=== PATIENT | female | born 1995 ===

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

== ENCOUNTER 2021-08-26 07:46 | Inpatient (IN) ==
[2021-08-26] MEDS ORDERED: OXYTOCIN 30 UNITS/500 ML BAG IV PRN ×3 (08:05→18:27)
[2021-08-26 08:27] LABS: Hematocrit (blood only) 37.3 % (37-47); Hemoglobin 12.4 g/dL (12.0-16.0); Mean Corpuscular Hemoglobin 30.5 pg (25-34); Mean Corpuscular Hgb Conc 33.2 g/dL (32-36); Mean Corpuscular Volume 91.6 fL (80-100); Mean Platelet Volume 9.9 fL (7.4-10.4); Platelet Count 275 K/uL (130-400); RDW Standard Deviation 53.5 fL (36.4-46.3); Red Blood Count 4.07 M/uL (4.2-5.4); White Blood Count 12.62 K/uL (4.8-10.8)
--- NOTE | 2021-08-26 08:59 | History & Physical Report ---
Date of Service August 26, 2021 Assessment & Plan (1) Insulin controlled gestational diabetes mellitus (GDM) during : (2) Encounter for induction of labor: Plan: admit, iv, labs. start pitocin. arom when able. fhts categ 1. check bsg now, plan q2hr in labor--depending on results. Admission and Anticipated Discharge Date Admission Date: August 26, 2021 History of Present Illness Chief Complaint: planned induction Primary Care Provider: NO PCP 26yo at 39+wks laura presents to L&D for planned induction for GDM on insulin. Doing well. No bp issues yesterday at time of wick placement. Labs yesterday normal. Denies tyson, visual change, ruq pain. No ctx, no rom, no vb. +FM. Did not have enough nph to take her 30u last night and so only took 12u. Did not check her fasting this am. Ate her breakfast and took 1/2 her am regular, which was 5 units, due to how i instructed her but did not expect her to miss full dose of qhs NPH. Wick has not fallen out. PNC c/b 1. GDM on insulin Allergies Allergy/AdvReac Type Severity Reaction Status Date / Time No Known Allergies Allergy Verified 08/25/21 18:39 Home Medications Medication Instructions Recorded Confirmed Type prenat.vits,abbey,[id number] 1 tab PO DAILY 12/25/20 08/26/21 History acetone (urine) test (Ketone Urine #50 ea 05/08/21 08/25/21 Rx Test) blood sugar diagnostic (OneTouch #150 ea 05/08/21 08/25/21 Rx Verio test strips) blood-glucose meter (OneTouch #1 ea 05/08/21 08/25/21 Rx Verio Flex meter) lancets 33 gauge (OneTouch Delica #150 ea 05/08/21 08/25/21 Rx Plus Lancet) Novolin N Flexpen 100 unit/mL (3 30 unit SUBCUT DAILY #15 ml NS 06/03/21 08/26/21 Rx mL) subcutaneous insulin pen (insulin NPH isoph U-100 human) ferrous sulfate 1 tab PO Q OTHER DAY 07/15/21 08/26/21 History insulin lispro 100 unit/mL 10 unit SUBCUT TID #15 ml 07/25/21 08/26/21 Rx subcutaneous pen (Humalog KwikPen (U-100) Insulin) pen needle, diabetic 32 gauge x #100 ea 07/25/21 08/25/21 Rx 5/32" (BD Ultra-Fine Mary Pen Needle) insulin NPH isoph U-100 human 100 30 unit SUBCUT QPM 08/25/21 08/26/21 History unit/mL (3 mL) subcutaneous pen (Humulin N NPH U-100 Insulin KwikPen) Patient History Medical History (Updated 08/26/21 @ 09:00 by Nguyen Wynne MD, FACOG) Acne Large for dates affecting management of mother Polycystic ovarian syndrome Family History Mother Cerebral aneurysm Grandmother (Maternal) Skin cancer Social History (Updated 08/25/21 @ 18:39 by Dionna Bunch, RN) Smoking Status: Never smoker Hx Alcohol Use: No Hx Substance Use: No Preferred Language: Namibian Communication Ability: Effective Beliefs That Will Affect Care: None marital status: Single marital status details: Sergio (24) [phone] Current Living Situation: Spouse Current Living Situation Comment: lives with FOB, 1 dog, 2 cats, FOB to change litter. current occupational status: employed current occupation: PPT [employer] Other Information That Helps Us Care for You: No Feels Safe at Home: Yes Safety Concerns: Feels Safe At This Time Review of Systems as per Subjective / HPI Physical Exam Constitutional: WD/WN, vitals as above Respiratory: normal respiratory effort, lungs clear to auscultation Cardiovascular: Rate/Rhythm: regular rate and regular rhythm Gastrointestinal (Abdomen): soft gravid nt Musculoskeletal: no edema nontender calves Neurologic: grossly normal Psychiatric: A+Ox3, euthymic affect Genitourinary: OB Exam Abdomen: + estimated weight (7-8#) Manual OB Exam: + cervical dilation 4 cm, + cervical effacement (75%) and + station -2 OB Exam Monitor Tracing: + external FHT monitor used, + external uterine monitor used (no ctx), + category I and + normal FHT variability Results & Data ([facility]) Vital Signs (Past 12 Hours) Vital Signs Temp Pulse Resp BP 08/26/21 08:36 98.8 F 20 08/26/21 07:57 87 136/86 Coding Level of Care Code None Diagnoses Insulin controlled gestational diabetes mellitus (GDM) during O24.414 Encounter for induction of labor Z34.90
[2021-08-26] MEDS: LACTATED RINGER'S 1,000 ML IV PRN ×3 (09:11→17:25)
[2021-08-26] MEDS ORDERED: ACETAMINOPHEN 325 MG TAB PO ONE (10:21)
[2021-08-26] MEDS ORDERED: SODIUM CHLORIDE 0.9% INJ 10 ML VIAL ONE (12:21)
[2021-08-26] MEDS ORDERED: BUPIVACAINE 0.25% 30 ML VIAL ONE (12:21)
[2021-08-26] MEDS ORDERED: fentaNYL citrate 100 MCG/2 ML VIAL ONE (12:21)
[2021-08-26] MEDS ORDERED: ePHEDrine sulfate 50 MG/ML AMP ONE (12:21)
[2021-08-26] MEDS ORDERED: fentaNYL 2MCG/ML ROPIVACAINE 1.25MG/ML 100 ML BAG EPI ONE (12:22)
--- NOTE | 2021-08-26 13:01 | Anesthesiology Consultation ---
Date of Service August 26, 2021 Assessment & Plan (1) Encounter for pre-operative examination: Chart Review Chart Review: Acceptable Risk for Surgery and Patient NOT seen in Pre Admission Testing Consults Requested none ASA ASA3 Proposed Anesthesia Anesthesia Type: Labor Epidural Risk / Benefits Reviewed With: PT / POA / Parent / Guardian, Accepts Plan and Informed Consent Obtained History Height/Weight Height: 5 ft 5 in Weight: 100.244 kg Allergies Allergy/AdvReac Type Severity Reaction Status Date / Time No Known Allergies Allergy Verified 08/25/21 18:39 Medications Home Medications Medication Instructions Recorded Confirmed Last Taken prenat.vits,abbey,jtq-owld-vcyvc 1 tab PO DAILY 12/25/20 08/26/21 08/26/21 acetone (urine) test (Ketone Urine #50 ea 05/08/21 08/25/21 Unknown Test) blood sugar diagnostic (OneTouch #150 ea 05/08/21 08/25/21 Unknown Verio test strips) blood-glucose meter (OneTouch #1 ea 05/08/21 08/25/21 Unknown Verio Flex meter) lancets 33 gauge (OneTouch Delica #150 ea 05/08/21 08/25/21 Unknown Plus Lancet) Novolin N Flexpen 100 unit/mL (3 30 unit SUBCUT DAILY #15 ml NS 06/03/21 08/26/21 1 Day Ago mL) subcutaneous insulin pen ~08/25/21 (insulin NPH isoph U-100 human) ferrous sulfate 1 tab PO Q OTHER DAY 07/15/21 08/26/21 08/25/21 08:00 insulin lispro 100 unit/mL 10 unit SUBCUT TID #15 ml 07/25/21 08/26/21 08/26/21 subcutaneous pen (Humalog KwikPen (U-100) Insulin) pen needle, diabetic 32 gauge x #100 ea 07/25/21 08/25/21 Unknown " (BD Ultra-Fine Mary Pen Needle) insulin NPH isoph U-100 human 100 30 unit SUBCUT QPM 08/25/21 08/26/21 1 Day Ago unit/mL (3 mL) subcutaneous pen ~08/25/21 (Humulin N NPH U-100 Insulin KwikPen) Active Medications Generic Name Dose Route Start Last Admin Trade Name Freq PRN Reason Stop Dose Admin Lactated Ringer's 1,000 mls @ 125 mls/hr 08/26/21 08:05 08/26/21 12:49 Lr IV 08/28/21 08:04 999 mls/hr .Q8H PRN Administration L&D Protocol Protocol Oxytocin 30 units in 500 mls @ 9 mls/hr 08/26/21 08:05 08/26/21 11:45 Pitocin IV 08/28/21 08:04 0.54 units/hr .Q24H PRN 9 mls/hr Labor Induction/Augmentation Titration Protocol 0.54 UNITS/HR Past Medical History Medical History Acne Large for dates affecting management of mother Polycystic ovarian syndrome Past Family History Family History Mother Cerebral aneurysm Grandmother (Maternal) Skin cancer Social History Smoking Status: Never smoker Hx Alcohol Use: No Hx Substance Use: No substance use type: does not use Physical Exam Vital Signs Last Vital Signs Temp 37.1 C 08/26/21 08:36 Pulse 83 08/26/21 12:52 Resp 18 08/26/21 12:17 BP 136/78 08/26/21 12:18 Pulse Ox 97 08/26/21 12:52 Testing Laboratory Results 08/26/21 08:16 08/26/21 09:08 POC Glucose 107 H
[2021-08-26] MEDS ORDERED: ePHEDrine sulfate 50 MG/ML AMP IV PRN (13:47)
[2021-08-26] MEDS ORDERED: ONDANSETRON INJ 2 MG/ML 2 ML VIAL IV PRN (13:47)
[2021-08-26] MEDS ORDERED: NALBUPHINE HCL INJ 10 MG/ML AMP IV PRN (13:47)
[2021-08-26] MEDS ORDERED: fentaNYL 2MCG/ML ROPIVACAINE 1.25MG/ML 100 ML BAG EPI PRN (13:47)
[2021-08-26] MEDS ORDERED: NALOXONE HCL 1 MG in SODIUM CHLORIDE 0.9% 1000ML 1,000 ML IV PRN (13:47)
[2021-08-26] MEDS ORDERED: NALOXONE HCL 0.4 MG/1 ML VIAL/CARP IV PRN (13:47)
[2021-08-26] MEDS ORDERED: diphenhydrAMINE 50 MG/ML VIAL IV PRN (13:47)
--- NOTE | 2021-08-26 14:00 | Labor Progress Brief Note ---
Date of Service August 26, 2021 Subjective comfortable now after epidural Assessment & Plan (1) Encounter for induction of labor: (2) Insulin controlled gestational diabetes mellitus (GDM) during : Plan: will see how arom helps labor. fhts categ 1. c/w pit Admission and Anticipated Discharge Date Admission Date: August 26, 2021 Physical Exam Constitutional: WD/WN, vitals as above Genitourinary: Manual OB Exam: + cervical dilation 4 cm, + cervical effacement 80%, + station -1 and + amniotic fluid (AROM) meconium OB Exam Monitor Tracing: + external FHT monitor used, + external uterine monitor used (q2), + category I and + normal FHT variability Results & Data ([facility]) Vital Signs (Past 12 Hours) Vital Signs Temp Pulse Resp BP Pulse Ox 08/26/21 13:56 90 144/80 H 08/26/21 13:52 85 97 08/26/21 13:51 88 140/74 08/26/21 13:47 98 H 96 08/26/21 13:45 96 H 151/76 H 08/26/21 13:43 89 128/67 08/26/21 13:42 92 H 96 08/26/21 13:41 91 H 139/76 08/26/21 13:39 86 145/80 H 08/26/21 13:37 88 143/68 H 97 08/26/21 13:35 100 H 151/70 H 08/26/21 13:33 85 146/70 H 08/26/21 13:32 85 98 08/26/21 13:31 105 H 147/77 H 08/26/21 13:29 89 148/80 H 08/26/21 13:27 94 H 147/85 H 96 08/26/21 13:25 82 133/86 08/26/21 13:22 95 H 97 08/26/21 13:17 105 H 98 08/26/21 13:12 81 99 08/26/21 13:11 99 H 94 08/26/21 13:07 86 99 08/26/21 13:02 84 99 08/26/21 12:57 83 99 08/26/21 12:52 83 97 08/26/21 12:47 75 99 08/26/21 12:42 93 H 98 08/26/21 12:37 81 95 08/26/21 12:32 84 96 08/26/21 12:27 87 97 08/26/21 12:22 85 96 08/26/21 12:18 82 136/78 08/26/21 12:17 180 H 18 98 08/26/21 11:46 80 120/67 08/26/21 10:30 81 18 117/69 08/26/21 08:36 98.8 F 20 08/26/21 07:57 87 136/86 Coding Level of Care Code None Diagnoses Encounter for induction of labor Z34.90 Insulin controlled gestational diabetes mellitus (GDM) during O24.414
--- NOTE | 2021-08-26 18:18 | Delivery Summary ---
Vaginal Delivery Summary Date of Service August 26, 2021 Vaginal Delivery Summary and 3rd Degree LAC (partial) The patient dilated to complete and pushed to deliver a viable female Apgars 7 and 9 via over partial 3rd degree perineal laceration. Mouth and nose bulb suctioned at perineum. Loose nuchal x 1 reduced with ease. Shoulders and body delivered with ease. was vigorous and crying at . Cord clamped at 20 seconds of life and to maternal abdomen where the cord was then doubly clamped and cut. Placenta delivered spontaneously and intact, three-vessel cord. Hemostasis achieved with dilute pitocin and uterine massage and drainage of the bladder for approximately 100 cc under sterile conditions. Laceration repaired in layers with 2-0 and 3-0 vicryl, with care to reinforce the capsule and repair of laceration otherwise routinely. Cervix and sulci intact. EBL 400 cc. Mother and baby stable recovery. [facility] [place] [facility] [place]aginal Delivery Charge Vaginal Delivery Codes: 05661 global code for the antepartum, delivery, and post- Delivery Type Details: and 3rd Degree LAC (partial)
--- NOTE | 2021-08-26 18:20 | Anesthesia Procedure Note ---
Date of Service August 26, 2021 Anesthesia Post Epidural Note Vital Signs Vital Signs: Temp Pulse Resp BP Pulse Ox 37.1 C 106 H 20 121/65 99 08/26/21 16:00 08/26/21 18:07 08/26/21 16:00 08/26/21 18:07 08/26/21 18:07 Notes Mental Status: alert / awake / arousable and participated in evaluation Nausea / Vomiting: adequately controlled Pain: adequately controlled Airway Patency, RR, SpO2: stable & adequate BP & HR: stable & adequate Hydration State: stable & adequate Neuraxial Anesthesia: was administered and sensory block is resolving Anesthetic Complications: no major complications apparent and Pt Satisfied with anesthetic care Epidural: Removed without complications and With tip intact Notes: Epidural site clean, dry and intact. No signs of edema, erythema or bruising at insertion site. Pt instructed to request anesthesia if she has residual lower extremity numbness or if she develops lower extremity pain or weakness, back pain or headache.
[2021-08-26 18:23] LABS: Base Excess Cord Arterial Bld -5.8 mEq/L (-9-1.8); Base Excess Cord Venous Blood -4.4 mEq/L (-7.7-1.9); CO2 Cord Arterial Blood 60 mmHg (39.1-73.5); Cord Venous Blood HCO3 21 mmol/L (18.4-26.8); Cord Venous Blood PCO2 38 mmHg (30.4-57.2); Cord Venous Blood PO2 24 mmHg (14.1-43.3); Cord Venous Blood pH 7.35 (7.20-7.44); HCO3 Cord Arterial Blood 23 mmol/L (19.7-28.5); PO2 Cord Arterial Blood 19 mmHg (4.1-31.7); pH Cord Arterial Blood 7.21 (7.1-7.38)
[2021-08-26 18:24] LABS: O2 Saturation Cord Venous Bld < 68.0 % (<68); Oxygen Sat Cord Arterial Blood < 60.0 % (<60)
[2021-08-26] MEDS ORDERED: oxyCODONE/ACETAMINOPHEN 5mg/325mg TAB PO PRN (18:27)
[2021-08-26] MEDS ORDERED: SUPERCREAM 0.870% 15 GM JAR EXT PRN (18:27)
[2021-08-26] MEDS ORDERED: HYDROCORTISONE ACETATE 25 MG SUPP PR PRN (18:27)
[2021-08-26] MEDS ORDERED: BENZOCAINE 20% AER SPR 82.5 GM CAN EXT PRN (18:27)
[2021-08-26] MEDS ORDERED: ACETAMINOPHEN 325 MG TAB PO PRN (18:27)
[2021-08-26] MEDS ORDERED: OXYTOCIN 20 UNITS in LACTATED RINGER'S 1,000 ML IV SCH (18:27)
[2021-08-26] MEDS: DOCUSATE SODIUM 100 MG CAP PO SCH (21:56)
[2021-08-27] MEDS: IBUPROFEN 600 MG TAB PO PRN ×4 (02:30→19:39)
[2021-08-27 06:18] LABS: Hematocrit (blood only) 32.9 % (37-47); Hemoglobin 10.7 g/dL (12.0-16.0)
--- NOTE | 2021-08-27 06:42 | Obstetrical Progress Note ---
Date of Service August 27, 2021 Assessment & Plan (1) examination following vaginal delivery: stable, routine care. rh pos, ri, . Day #:: 1 Subjective Ambulation: ambulating normally Voiding: no voiding problems Diet Tolerance:: regular diet Lochia:: Small Feeding Type:: breast feeding no pain issues Constitutional: + as per Subjective / HPI Physical Exam Constitutional WD/WN, vitals as above Respiratory normal respiratory effort, lungs clear to auscultation Cardiovascular Rate/Rhythm: regular rate and regular rhythm Gastrointestinal (Abdomen) Inspection/Auscultation: abdomen normal to inspection Percussion/Palpation: abdomen soft Fundus firm 2cm down Musculoskeletal nt calves tr edema Neurologic grossly normal Psychiatric A+Ox3, euthymic affect Results & Data ([facility]) Vital Signs (Past 12 Hours) Vital Signs Temp Pulse Pulse Resp BP BP Pulse Ox 08/27/21 03:20 98.8 F 98 H 18 119/72 08/26/21 23:00 98.8 F 96 H 18 129/71 98 08/26/21 20:08 117 H 143/67 H 08/26/21 19:52 110 H 18 118/59 L 08/26/21 19:37 112 H 133/61 08/26/21 19:22 99.1 F 91 H 18 122/59 L 08/26/21 19:07 100 H 123/64 08/26/21 18:52 107 H 18 142/60 H
--- NOTE | 2021-08-27 06:48 | Obstetrical Progress Note ---
Date of Service August 27, 2021 Assessment & Plan (1) Encounter for care and examination after delivery: PPD1: stable; routine care -ambulating, voiding without difficulty -tolerating regular diet -minimal pain/no need for analgesia at this time -anticipate d/c today or tomorrow -outpt OB f/u at 6 wks Subjective Nereida is a 26 y/o female who is now PPD 1 following spontaneous vaginal delivery at 39+weeks. GDM on insulin (30u NPH). Reports feeling well overall this morning. Reports minimal pain. Voiding +. Tolerating meals well and able to ambulate without difficulty. + passing gas but no bowel movements. Some lochia with improvement this morning. . Review of Systems Denies fever, chills, sweats Denies shortness of breath, difficulty breathing, chest pain, palpitations, chest pressure. Denies breast pain. Denies dysuria. Denies headache or changes in vision Physical Exam General: Alert, oriented. No acute distress. Cardiac: Regular rate and rhythm, no murmurs/rubs/gallops. Respiratory: Clear to auscultation bilaterally a/p, no wheezes/rales/rhonchi. No increased work of breathing. Symmetrical chest rise. No respiratory distress. Abdomen: Soft, nontender, nondistended. Bowel sounds present. Uterus: Uterine fundus firm, palpable 3 cm below umbilicus. Lower Extremities: No lower extremity edema or swelling. No deep calf pain. Elayne's negative bilaterally. Results & Data ([facility]) Vital Signs (Past 12 Hours) Vital Signs Temp Pulse Pulse Resp BP BP Pulse Ox 08/27/21 03:20 37.1 C 98 H 18 119/72 08/26/21 23:00 37.1 C 96 H 18 129/71 98 08/26/21 20:08 117 H 143/67 H 08/26/21 19:52 110 H 18 118/59 L 08/26/21 19:37 112 H 133/61 08/26/21 19:22 37.3 C 91 H 18 122/59 L 08/26/21 19:07 100 H 123/64 08/26/21 18:52 107 H 18 142/60 H Resident Activity Tracking Resident Involvement: Resident Care Provided Care Provided: OB Delivery
[2021-08-27] MEDS: PRENATAL VITAMIN 1 TAB PO SCH (07:33)
[2021-08-27] MEDS: DOCUSATE SODIUM 100 MG CAP PO SCH ×2 (07:33→19:39)
[2021-08-27] MEDS ORDERED: DIPHTHERIA/TETANUS/PERTUSSIS 0.5 ML SYR/VIAL IM ONE (09:00)
[2021-08-28] MEDS: IBUPROFEN 600 MG TAB PO PRN ×2 (04:28→08:36)
--- NOTE | 2021-08-28 06:59 | Obstetrical Progress Note ---
Date of Service <Silva Morrow MD - Last Filed: 08/28/21 07:29> August 28, 2021 Assessment & Plan <Silva Morrow MD - Last Filed: 08/28/21 07:29> (1) Encounter for care and examination after delivery: PPD2: stable; routine care -ambulating, voiding without difficulty -tolerating regular diet -pain managed with Motrin -d/c today -outpt OB f/u at 6 wks <Padmaja Serrano MD, FACOG - Last Filed: 08/28/21 07:31> (1) Encounter for care and examination after delivery: Subjective <Silva Morrow MD - Last Filed: 08/28/21 07:29> Nereida is a 26 y/o female who is now PPD 2 following spontaneous vaginal delivery at 39 weeks. Reports feeling well overall this morning. + abdominal cramping & 3-5/10 pain well managed on analgesics. Voiding +. Tolerating meals well and able to ambulate w/o difficulty. + passing gas and + bowel movements. . Review of Systems Denies fever, chills, sweats Denies shortness of breath, difficulty breathing, chest pain, palpitations, chest pressure. Denies breast pain. Denies dysuria. Denies headache or changes in vision Physical Exam <Silva Morrow MD - Last Filed: 08/28/21 07:29> General: Alert, oriented. No acute distress. Cardiac: Regular rate and rhythm, no murmurs/rubs/gallops. Respiratory: Clear to auscultation bilaterally a/p, no wheezes/rales/rhonchi. No increased work of breathing. Symmetrical chest rise. No respiratory distress. Abdomen: Soft, nontender, nondistended. Bowel sounds present. Uterus: Uterine fundus firm, palpable just below umbilicus. Lower Extremities: No lower extremity edema or swelling. No deep calf pain. Elayne's negative bilaterally. Results & Data ([facility]) <Silva Morrow MD - Last Filed: 08/28/21 07:29> Vital Signs (Past 12 Hours) Vital Signs Temp Pulse Resp BP Pulse Ox 08/27/21 23:30 37.4 C 93 H 18 120/77 98 08/27/21 19:45 37.6 C H 97 H 18 125/81 99 <Padmaja Serrano MD, FACOG - Last Filed: 08/28/21 07:31> Co-Signing Physician Notes Resident Physician Supervision Note: I was present with DrSteve [Name of resident] during the history and exam. I discussed the case with the resident and agree with the findings and plan as documented in the note. Any exceptions or clarifications are listed here: [None] Documented By: Padmaja Serrano MD, FACOG Resident Activity Tracking <Silva Morrow MD - Last Filed: 08/28/21 07:29> Resident Involvement: Resident Care Provided Care Provided: OB Delivery
[2021-08-28] MEDS: DOCUSATE SODIUM 100 MG CAP PO SCH (08:36)
[2021-08-28] MEDS: PRENATAL VITAMIN 1 TAB PO SCH (08:36)
== END 2021-08-28 11:05 | disposition home or self-care (01) | DRG 768 ==
LOC: 4S1 07:46 → 4S2 21:01